=== PATIENT | male | born 1965 | race Hispanic/Latino ===

== ENCOUNTER 2024-07-26 03:52 | Inpatient (IN) | payer OTHER, SELFPAY ==
[2024-07-26 04:43] LABS: Absolute Lymphocytes (CBC) 2.2 K/uL (0.7-4.9); Absolute Monocytes 0.4 K/uL (0.1-1.3); Absolute Neutrophil 5.8 K/uL (1.8-8.0); Basophils % 0.2 % (0-1.3); Eosinophils % 0.5 % (0-4.4); Hematocrit 44.3 % (39.6-49.0); Hemoglobin 15.5 g/dL (13.6-17.9); Lymphocytes % 26.1 % (15.3-44.8); MCH 32.3 pg (27.0-35.0); MCHC 34.9 g/dL (32.0-36.0); MCV 92.5 fL (80-100); MPV 7.4 fL (7.6-11.3); Neutrophils % 68.2 % (41.7-73.7); Nucleated Red Blood Cells % 0.1 % (0-0); Platelets 193 thou/uL (152-406); RBC Red Blood Cell Count 4.79 M/uL (4.33-5.43)
[2024-07-26 04:49] LABS: PT Prothrombin Time 10.7 SECONDS (9.4-12.5); Protime INR 1.02
[2024-07-26 05:02] LABS: ALT/SGPT 31 U/L (16-61); AST/SGOT 20 U/L (15-37); Albumin 3.3 g/dL (3.4-5.0); Albumin/Globulin Ratio 0.9 (1.1-1.8); Alkaline Phosphatase 114 U/L (45-117); Anion Gap 9.7 mEq/L (5.0-15.0); BUN Blood Urea Nitrogen 12 mg/dL (7-18); Bicarbonate 26 mEq/L (21-32); Bilirubin Total 0.4 mg/dL (0.2-1.0); Globulin 3.7 g/dL (2.3-3.5); Glomerular Filtration Rate 85 ml/min (=/>90); Glucose Level 117 mg/dL (74-106); Lipase 24 U/L (13-75); NT PRO-BNP 14 pg/mL (<125); Potassium 3.7 mEq/L (3.5-5.1); Sodium Level 139 mEq/L (136-145); Troponin High Sensitivity 13.3 pg/mL (<58.9)
[2024-07-26 05:17] LABS: Bilirubin Direct < 0.2 mg/dL (0-0.2); Bilirubin Indirect, Calculated 0.2 mg/dL (0.2-0.8)
--- NOTE | 2024-07-26 05:51 | RAD REPORT ---
EXAM: XR Chest, 1 View CLINICAL HISTORY: The patient is 58 years old and is Male; CHEST PAIN TECHNIQUE: Frontal view of the chest. COMPARISON: No relevant prior studies available. FINDINGS: Lungs: Unremarkable. No consolidation. Pleural space: Unremarkable. No pneumothorax. Heart: Unremarkable. Mediastinum: Unremarkable. Normal mediastinal contour. Bones/joints: No acute findings. IMPRESSION: No acute findings in the chest. Electronically signed by: Junito Osorio MD 07/26/2024 05:34 AM [facility] 8 Due to temporary technical issues with the PACS/Nexgence reporting system, reports are being sierra d by the in-house radiologist without review as a courtesy to ensure prompt reporting the interpreting radiologist is fully responsible for the content of the report. Transcribed Date/Time: 07/26/2024 5:51 AM
--- NOTE | 2024-07-26 06:17 | ER ---
Nurse's Notes [facility] Name: Cam Morgan Age: 58 yrs Sex: Male : 1965 Arrival Date: 07/26/2024 Time: 03:52 Bed 6 Private MD: Sonny Redding B Diagnosis: Chest pain, unspecified Presentation: 07/26 04:21 Chief complaint: Patient states: back pain that radiates to chest when I lay down. vc1 Coronavirus screen: Client denies travel out of the [place] in the last 14 days. At this time, the client does not indicate any symptoms associated with coronavirus-19. Ebola Screen: Patient negative for fever greater than or equal to 101.5 degrees Fahrenheit, and additional compatible Ebola Virus Disease symptoms Patient denies exposure to infectious person. Patient denies travel to an Ebola-affected area in the 21 days before illness onset. No symptoms or risks identified at this time. Initial Sepsis Screen: Does the patient meet any 2 criteria? No. Patient's initial sepsis screen is negative. Does the patient have a suspected source of infection? No. Patient's initial sepsis screen is negative. Risk Assessment: Do you want to hurt yourself or someone else? Patient reports no desire to harm self or others. Onset of symptoms was July 25, 2024 at 23:00. 04:21 Method Of Arrival: Ambulatory vc1 04:21 Acuity: MAXIME 3 vc1 Triage Assessment: 04:24 General: Appears in no apparent distress. comfortable, well groomed, well developed, vc1 well nourished, Behavior is calm, cooperative, appropriate for age. Pain: Complains of pain in thoracic area Pain radiates to mid-sternal area Pain currently is 3 out of 10 on a pain scale. at worst was 6 out of 10 on a pain scale. Quality of pain is described as sharp, Pain began 2300. EENT: No deficits noted. No signs and/or symptoms were reported regarding the EENT system. Neuro: Level of Consciousness is awake, alert, obeys commands, Oriented to person, place, time, situation, Appropriate for age. Cardiovascular: Capillary refill < 3 seconds Patient's skin is warm and dry. Respiratory: Airway is patent Respiratory effort is even, unlabored, Respiratory pattern is regular, symmetrical, Breath sounds are clear bilaterally. GI: No deficits noted. No signs and/or symptoms were reported involving the gastrointestinal system. : No deficits noted. No signs and/or symptoms were reported regarding the genitourinary system. Derm: Skin is intact, is healthy with good turgor, Skin is dry, Skin is normal, Skin temperature is warm. Musculoskeletal: Circulation, motion, and sensation intact. Range of motion: intact in all extremities. Historical: - Allergies: 04:23 No Known Allergies; vc1 - Home Meds: 04:23 None [Active]; vc1 - PMHx: 04:23 Myocardial infarction; vc1 - PSHx: 04:23 nasal; vc1 - Immunization history:: Client reports having NOT received the Covid vaccine. Flu vaccine is not up to date. - Infectious Disease History:: Denies. - Family history:: not pertinent. - Social history:: Smoking status: Patient denies any tobacco usage or history of. - Hospitalizations: : No recent hospitalization is reported. Screenin:22 [facility] ED Fall Risk Assessment (Adult) History of falling in the last 3 months, vc1 including since admission No falls in past 3 months (0 pts) Confusion or Disorientation No (0 pts) Intoxicated or Sedated No (0 pts) Impaired Gait No (0 pts) Mobility Assist Device Used No (0 pt) Altered Elimination No (0 pt) Score/Fall Risk Level 0 - 2 = Low Risk Oriented to surroundings, Maintained a safe environment, Educated pt \T\ family on fall prevention, incl call for assistance when getting out of bed. Abuse screen: Denies threats or abuse. Nutritional screening: No deficits noted. Tuberculosis screening: No symptoms or risk factors identified. Never had TB. Assessment: 07:15 Reassessment: Patient appears in no apparent distress at this time. Patient and/or db family updated on plan of care and expected duration. Pain level reassessed. Patient is alert, oriented x 3, equal unlabored respirations, skin warm/dry/pink. General: Appears in no apparent distress. comfortable, Behavior is calm, cooperative. Pain:. Neuro: Level of Consciousness is awake, alert, obeys commands, Oriented to person, place, time, situation. Vital Signs: 04:00 BP 147 / 95; Pulse 62; Resp 18; Pulse Ox 98% ; al5 04:21 BP 126 / 92; Pulse 69; Resp 18; Temp 97.8; Pulse Ox 100% ; Weight 103.42 kg; Height 6 vc1 ft. 1 in. ; Pain 3/10; 04:30 BP 138 / 85; Pulse 61; Resp 17; Pulse Ox 97% on R/A; al5 07:35 BP 129 / 85; Pulse 60; Resp 16; Pulse Ox 96% ; ko1 09:56 BP 127 / 79; Pulse 60; Resp 15; Pulse Ox 99% ; ko1 04:21 Body Mass Index 30.08 (103.42 kg, 185.42 cm) vc1 04:21 Pain Scale: Adult vc1 ED Course: 03:57 Patient arrived in ED. gm2 03:57 David Owusu MD is Attending Physician. rn 03:57 Sonny Redding MD is Private Physician. gm2 04:15 No provider procedures requiring assistance completed. Inserted saline lock: 20 gauge al5 in right antecubital area, using aseptic technique. Blood collected. Flushed with 10 mL NS. 04:22 Triage completed. vc1 04:22 Arm band placed on right wrist. vc1 04:23 Patient has correct armband on for positive identification. Placed in gown. Bed in low vc1 position. environmental monitoring specialist on. Pulse ox on. NIBP on. 04:26 XRAY Chest (1 view) In Process Unspecified. EDMS 04:26 Provided Education on: Call light. vc1 04:35 EKG done, by ED staff, reviewed by David Owusu MD. sa1 04:48 Katherin Porras, SUSANNA is Primary Nurse. al5 05:34 CT Aorta for Dissection In Process Unspecified. EDMS 06:16 Melodie Singletary MD is Hospitalizing Provider. rn 14:19 Patient admitted, IV remains in place. ko1 Administered Medications: 07:01 Drug: Aspirin PO Chewable Tablet 324 mg PO once; 81 mg tablets x 4 Route: PO; al5 07:31 Follow up: Response: No adverse reaction ko1 Medication: 04:23 VIS not applicable for this client. vc1 Outcome: 06:17 Decision to Hospitalize by Provider. rn 14:19 Condition: stable ko1 14:19 Instructed on the need for admit, 14:42 Admitted to Tele accompanied by tech, via wheelchair, room 404, with chart, ko1 14:42 Patient left the ED. ko1 Signatures: Dispatcher [employer] EDMS David Owusu MD MD rn Calcote, Vanessa RN RN vc1 Lily Hammer RN RN ko1 Brenda Ozuna RN RN Nhi Barroso 2 Katherin Porras RN RN al5 Sultan Piedad sa1 Sierra Bray RN RN br2 Corrections: (The following items were deleted from the chart) 04:49 04:31 BP 147 / 95; Pulse 62bpm; Resp 18bpm; Pulse Ox 98%; br2 al5
--- NOTE | 2024-07-26 06:17 | EDPHYS ---
Physician Documentation [facility] Name: Cam Morgan Age: 58 yrs Sex: Male : 1965 Arrival Date: 07/26/2024 Time: 03:52 Bed 6 Private MD: Sonny Redding B ED Physician David Owusu HPI: 07/26 04:18 This 58 yrs old Male presents to ER via Unassigned with complaints of Back rn Pain, Chest Pain. 04:18 The patient presents with pain that is acute. The symptoms are located in the thoracic rn area. 04:18 Onset: The symptoms/episode began/occurred this morning. The pain radiates to the rn chest. Associated signs and symptoms: Pertinent positives: chest pain, Pertinent negatives: abdominal pain, fever, hematuria, incontinence, nausea, numbness, tingling, urinary retention, vomiting, weakness. Modifying factors: The patient symptoms are alleviated by nothing, the patient symptoms are aggravated by any movement. Severity of symptoms: At their worst the symptoms were moderate, in the emergency department the symptoms have improved. The patient has experienced similar episodes in the past. Patient reports was laying down on his side when started to have mid back pain, radiates to chest on right side. Patient is concerned because in the past when he had similar back pain he was diagnosed with heart attack and had a stent placed on the right side of his heart. Patient denies any trauma. No recent illness. No shortness of breath. No diaphoresis or nausea with the pain. Hurts to move and got better when pacing and walking around. Still having back pain but no chest pain.. Historical: - Allergies: 04:23 No Known Allergies; vc1 - Home Meds: 04:23 None [Active]; vc1 - PMHx: 04:23 Myocardial infarction; vc1 - PSHx: 04:23 nasal; vc1 - Immunization history:: Client reports having NOT received the Covid vaccine. Flu vaccine is not up to date. - Infectious Disease History:: Denies. - Family history:: not pertinent. - Social history:: Smoking status: Patient denies any tobacco usage or history of. - Hospitalizations: : No recent hospitalization is reported. ROS: 04:18 Constitutional: Negative for fever, chills, and weight loss, Cardiovascular: Positive rn for chest pain Respiratory: Negative for shortness of breath, cough, wheezing, and pleuritic chest pain, Abdomen/GI: Negative for abdominal pain, nausea, vomiting, diarrhea, and constipation, Back: Positive for back pain MS/Extremity: Negative for injury and deformity, Skin: Negative for injury, rash, and discoloration, Neuro: Negative for headache, weakness, numbness, tingling, and seizure, Exam: 04:18 Constitutional: This is a well developed, well nourished patient who is awake, alert, rn and in no acute distress. Cardiovascular: Regular rate and rhythm. No pulse deficits. Respiratory: Speaking full sentences, unlabored. No increased work of breathing, no retractions or nasal flaring. Abdomen/GI: Soft, nontender, negative Huertas. No peritoneal signs or guarding MS/ Extremity: Pulses equal, no cyanosis. Neurovascular intact. Full, normal range of motion. Equal circumference. Neuro: Awake and alert, GCS 15 04:23 ECG was reviewed by the Attending Physician. rn Vital Signs: 04:00 BP 147 / 95; Pulse 62; Resp 18; Pulse Ox 98% ; al5 04:21 BP 126 / 92; Pulse 69; Resp 18; Temp 97.8; Pulse Ox 100% ; Weight 103.42 kg; Height 6 vc1 ft. 1 in. ; Pain 3/10; 04:30 BP 138 / 85; Pulse 61; Resp 17; Pulse Ox 97% on R/A; al5 07:35 BP 129 / 85; Pulse 60; Resp 16; Pulse Ox 96% ; ko1 09:56 BP 127 / 79; Pulse 60; Resp 15; Pulse Ox 99% ; ko1 04:21 Body Mass Index 30.08 (103.42 kg, 185.42 cm) vc1 04:21 Pain Scale: Adult vc1 MDM: 03:57 Medical Screening Exam initiated rn 06:14 Differential diagnosis: arthritis, Cholelithiasis Osteoarthritis sprain, Myocardial rn infarction, pleurisy, muscle spasm, dissection, aneurysm. Data reviewed: vital signs, nurses notes, lab test result(s), EKG, radiologic studies, CT scan, plain films, and as a result, I will admit patient. Consideration of Admission/Observation Patient was admitted/placed on observation. Escalation of care including admission/observation considered. Counseling: I had a detailed discussion with the patient and/or guardian regarding the historical points, exam findings, and any diagnostic results supporting the discharge/admit diagnosis, lab results, radiology results, the need for further work-up and treatment in the hospital. Response to treatment: the patient's symptoms have resolved after treatment, the patient's condition has returned to base line, the patient is now symptom free. ED course: Chest pain resolved. Given inferior lead T wave inversions as well as story that is similar to last time needed a stent, decision jointly made to admit to hospitalist service for cardiology consultation.. 07/26 03:58 Order name: Basic Metabolic Panel; Complete Time: 05:18 07/26 03:58 Order name: CBC with Diff; Complete Time: 04:53 07/26 03:58 Order name: LFT's; Complete Time: 05:18 07/26 03:58 Order name: NT PRO-BNP; Complete Time: 05:18 07/26 03:58 Order name: PT-INR; Complete Time: 04:53 07/26 03:58 Order name: Troponin HS; Complete Time: 05:18 07/26 04:42 Order name: Lipase; Complete Time: 05:18 [facility] 07/26 09:52 Order name: Troponin High Sensitivity [facility] 07/26 03:58 Order name: XRAY Chest (1 view); Complete Time: 07:06 07/26 04:22 Order name: CT Aorta for Dissection 07/26 09:52 Order name: Echo with Doppler [facility] 07/26 09:51 Order name: CONS Physician Consult [facility] 07/26 03:58 Order name: Cardiac monitoring; Complete Time: 04:20 07/26 03:58 Order name: EKG - Nurse/Tech; Complete Time: 04:20 07/26 03:58 Order name: IV Saline Lock; Complete Time: 04:20 07/26 03:58 Order name: Labs collected and sent; Complete Time: 04:20 07/26 03:58 Order name: O2 Per Protocol; Complete Time: 04:20 07/26 03:58 Order name: O2 Sat Monitoring; Complete Time: 04: 07/26 10:55 Order name: Labs - recollect needed: recollect green top/ hemolyzed per lab; Complete eb Time: 11:22 EC:23 Rate is 68 beats/min. Rhythm is regular. QRS [place] is Normal. CO interval is normal. QRS rn interval is normal. QT interval is normal. No Q waves. T waves are Inverted in leads III, aVF. No ST changes noted. Clinical impression: NSR w/ Non-specific ST/T Changes. Interpreted by me. Reviewed by me. Administered Medications: 07:01 Drug: Aspirin PO Chewable Tablet 324 mg PO once; 81 mg tablets x 4 Route: PO; al5 07:31 Follow up: Response: No adverse reaction ko1 Disposition Summary: 07/26/24 06:17 Hospitalization Ordered Notes: Hospitalization Status: Observation rn Provider: Melodie Singletary rn Location: Telemetry/MedSurg (observation) rn Condition: Stable rn Problem: new rn Symptoms: have improved rn Bed/Room Type: Standard rn Room Assignment: 404(07/26/24 13:50) eb Diagnosis - Chest pain, unspecified rn Forms: - Medication Reconciliation Form rn - SBAR form rn - Leadership Thank You Letter rn Signatures: Dispatcher [employer] EDUT David Owusu MD MD rn Botello, Elizabeth eb Calcote, Vanessa RN RN vc1 Katherin Porras RN RN al5 Lily Hammer RN ko1 Corrections: (The following items were deleted from the chart) 03:58 03:58 BASIC METABOLIC PANEL+C.LAB.BRZ ordered. EDMS EDMS 03:58 03:58 CBC+H.LAB.BRZ ordered. EDMS EDMS 03:58 03:58 HEPATIC FUNCTION+C.LAB.BRZ ordered. EDMS EDMS 03:58 03:58 PROBNP+C.LAB.BRZ ordered. EDMS EDMS 03:58 03:58 PROTIME (+INR)+COAG.LAB.BRZ ordered. EDMS EDMS 03:58 03:58 Troponin High Sensitivity+C.LAB.BRZ ordered. EDMS EDMS 03:58 03:58 Chest Single View+RAD.RAD.BRZ ordered. EDMS EDMS 04:42 04:27 LIPASE+C.LAB.BRZ ordered. EDMS EDMS 13:50 06:17 rn eb
[2024-07-26] MEDS ORDERED: ASPIRIN 81 MG CHEWABLE TABLET ONE (06:58)
--- NOTE | 2024-07-26 07:03 | RAD REPORT ---
CT chest, CT abdomen and pelvis angiography with contrast TECHNIQUE: Axial images were taken through the chest with sagittal and coronal reconstructions. Addit ional axial images were taken through the abdomen and pelvis with sagittal and coronal reconstructions. MIP reconstructions were preformed. All CT scans at this facility use dose modulatio n, iterative reconstruction, and/or weight based dosing when appropriate to reduce radiation dose to as low as reasonably achievable HISTORY: chest pain, back pain COMPARISON: one FINDINGS: Aorta: The aorta is of normal caliber without evidence of dissection or other acute aortic syndrome. The contour of the aorta is normal. The branches of the aorta including the common carotid, left subclavian, brachiocephalic, celiac, SMA, renal arteries, and RAFA are patent. Mild atherosclerotic pl aque is seen in the aortic arch and in the iliacs. Scant plaque seen at the origin of the celiac axis. Chest: Mediastinum: The heart is normal in size. There is moderate coronary artery sclerosis. There is no pe ricardial effusion. There is no pathologically enlarged adenopathy. There is no evidence for pulmonary emboli. LUNGS: he lungs are clear there is no alveolar consolidation effusion or pneumothorax. Bones: There are mild degenerative changes. No acute osseous abnormality. ABDOMEN: There is possible diffuse fatty infiltration of the liver. There is no evidence for mass or intrahepa tic biliary ductal dilatation. The gallbladder appears unremarkable. There is no evidence for gallbladder wall thickening or pericholecystic fluid. The adrenal glands, pancreas and spleen are nor mal. The kidneys appear unremarkable. There is no evidence for hydronephrosis or stone. The large and small bowel of the abdomen and pelvis appears unremarkable. There is no evidence for ac [place] appendicitis. Pelvis: There is no evidence for pathologically enlarged adenopathy. The bladder appears unremarkable. There is no free air or free fluid. The prostate is not enlarged. Scattered plaque at the origin of the celiac axis. Mild degenerative changes. No acute osseous abnorm ality. Impression: 1. No evidence of aortic dissection or other acute aortic syndrome. 2. No acute cardiopulmonary process. 3. No acute intra-abdominal or pelvic process. 4. Possible hepatic steatosis. Electronically signed by: Ga Braden MD 07/26/2024 06:56 AM [facility] Due to temporary technical issues with the PACS/Stuk[employer] reporting system, reports are being sierra d by the in-house radiologist without review as a courtesy to ensure prompt reporting the interpreting radiologist is fully responsible for the content of the report. Transcribed Date/Time: 07/26/2024 7:03 AM
--- NOTE | 2024-07-26 09:51 | P.HP ---
Certification for Inpatient Patient admitted to: Observation With expected LOS: <2 Midnights Patient will require the following post-hospital care: None Practitioner: I am a practitioner with admitting privileges, knowledge of patient current condition, hospital course, and medical plan of care. Services: Services provided to patient in accordance with Admission requirements found in Title 42 Section 412.3 of the Code of Federal Regulations Patient History Date of Service: 07/26/24 Reason for admission: CP r/o ACS Physical Examination - Studies Laboratory Data (last 24 hrs) 07/26/24 07/26/24 07/26/24 04:27 04:27 04:27 WBC 8.40 Hgb 15.5 Hct 44.3 Plt Count 193 PT 10.7 INR 1.02 Sodium Potassium BUN Creatinine Glucose Total Bilirubin AST ALT Alkaline Phosphatase Lipase Cancelled 07/26/24 04:27 WBC Hgb Hct Plt Count PT INR Sodium 139 Potassium 3.7 BUN 12 Creatinine 1.03 Glucose 117 H Total Bilirubin 0.4 AST 20 ALT 31 Alkaline Phosphatase 114 Lipase 24 Assessment & Plan - Advance Directives Does patient have a Living Will: No Does patient have a Durable POA for Healthcare: No
--- OUTSIDE RECORDS SUMMARY | 2024-07-26 10:16 | XMS REPORT | Continuity of Care Document ---
Author Name Unknown Address [address] [facility] [address] [place] [address] [facility] thconnect Address [address] [facility]. [address] [place] [address] Care Team Providers Care Transmission Inspector Name Role Phone SONNY TYSON Primary Care Physician UnavailBEVERLY Galdamez Attending Clinician Unavailable Beverly Fang MD Attending Clinician [phone] Doctor Unassigned, [place] Attending Clinician U navailable Therapy, [facility] Attending Clinician Unavailable Marvin Campbell MD Attending Clinician [phone] WILMAN KING Attending Clinician Unavailable Filipe Foley Attending Clinician UnavailSonny Mario Admitting Clinician Unavailable Payers Payer Name Policy Type Policy Number Effective Date Expirati on Date Source [facility] [id number] 2020 00:00:00 Problems Condition Name Condition Details Condition Category Status Onset Date Resolution Date Last Treatment Date Treating Clinician Comments Source Coronary artery disease involving [place] coronary artery of [place] heart without angina pectoris Coronary artery disease involving [place] coronary artery of [place] heart without angina pectoris Disease Active 08-03 00:00: 00 [facility] Hyperlipid emia, unspecifie d hyperlipid emia type Hyperlipid emia, unspecifie d hyperlipid emia type Disease Active 08-03 00:00: 00 [facility] Obesity (BMI 30-39.9) Obesity (BMI 30-39.9) Disease Active 08-03 00:00: 00 [facility] Allergies, Adverse Reactions, Alerts Allergy Name Allergy Type Status Severity Reaction(s) Onset Date Inactive Date Treating Clinician Comments Source No Known Allergie s DA Active U 01-30 00:00: 00 [facility] No Known Allergie s DA Active U 01-30 00:00: 00 [facility] NO KNOWN ALLERGIE S Drug Class Active [facility] Social History Social Habit Start Date Stop Date Quantity Comments Source [facility] Tobacco use and exposure 2023-08-03 00:00:00 2023-08-03 00:00:00 Smokeless tobacco non-user [facility] History of Social function 2023-08-03 00:00:00 2023-08-03 00:00:00 [facility] Sex Assigned At 1965 00:00:00 1965 00:00:00 [facility] Smoking Status Start Date Stop Date Source Tobacco smoking consumption unknown [facility] Never smoked tobacco [facility] Medications Ordered Medication Name Filled Medication Name Start Date Stop Date Current Medication? Ordering Clinician Indication Dosage Frequency Signature (SIG) Comments Components Source aspirin (ASPIR-81 ORAL) 08-03 09:20: 02 Yes Take by mouth. [facility] BRILINTA 90 mg tablet 2022-07 00:00: 00 Yes 90mg Take 1 tablet by mouth in the morning and 1 tablet in the evening. [facility] ezetimibe 10 mg tablet 2022-07 00:00: 00 Yes 10mg Take 1 tablet by mouth 2 (two) times per week. [facility] bamlanivima b (EUA) 700 mg in NaCl 0.9% (NS) 270 mL infusion 08-15 15:15: 00 08-15 16:25 :00 No 700mg [facility] bamlanivima b (EUA) 700 mg in NaCl 0.9% (NS) 270 mL infusion 08-15 15:15: 00 08-15 16:25 :00 No 700mg 700 mg, IV Infusion, ONCE, 08/15/20 at 0915, For 1 dose
Ad procurement professional as an IV infusion over 60 minutes through a PVC infusion set containing a 0.2 or 0.22 micron in-line polyethers ulfone filter.&nb sp; S low or stop infusion and treat as appropriat e if an infusion-r elated reaction occurs. Dilu florencia infusion solution should be administer ed immediatel y. If immediate administra tion is not possible, store diluted bamlanivim ab infusion solution for up to 24 hours refrigerat ed at 2?C to 8?C (36?F to 46?F) or up to 7 hours at 20?C to 25?C (68?F to 77?F) including infusion time.
[facility] Vital Signs Vital Name Observation Time Observation Value Comments S ource Systolic blood pressure 2023-08-03 15:29:00 125 mm[Hg] [facility] Diastolic blood pressure 2023-08-03 15:29:00 80 mm[Hg] [facility] Heart rate 2023-08-03 15:29:00 62 /min [facility] Body height 2023-08-03 15:29:00 185.4 cm [facility] Body weight 2023-08-03 15:29:00 106.958 kg [facility] BMI 2023-08-03 15:29:00 31.11 kg/m2 [facility] Oxygen saturation in Arterial blood by Pulse oximetry 2023-08-03 15:29:00 98 /min [facility] Systolic blood pressure 2020-08-15 17:24:00 124 mm[Hg] [facility] Diastolic blood pressure 2020-08-15 17:24:00 71 mm[Hg] [facility] Heart rate 2020-08-15 17:24:00 76 /min [facility] Oxygen saturation in Arterial blood by Pulse oximetry 2020-08-15 17:24:00 99 /min [place] [facility] Body temperature 2020-08-15 17:01:[address] [facility] Respiratory rate 2020-08-15 16:25:00 20 /min [facility] Body height 2020-08-15 14:01:00 182.9 cm [facility] Body weight 2020-08-15 14:01:00 122.471 kg [facility] BMI 2020-08-15 14:01:00 36.62 kg/m2 [facility] Procedures Procedure Date / Time Performed Performing Clinicia n Source CONSENT/REFUSAL FOR DIAGNOSIS AND TREATMENT 2023-08-03 14:48:35 Doctor Unassigned, [place] [facility] EXTERNAL PROVIDER RECORDS 2020-08-27 06:01:00 Doctor Unassigned, [place] [facility] REFERRAL- REQUEST/RESPONSE 2020-08-13 06:01:00 Doctor Unassigned, [place] [facility] Encounters Start Date/Time End Date/Time Encounter Type Admission Type Attending Clinicians Care Facility Care Department Encounter ID Source 2023-08-03 09:00:00 2023-08-03 09:49:13 [id number] 2023-08-03 09:00:00 2023-08-03 09:49:13 [facility] [id number] [id number] [facility] 2023-08-03 00:00:00 2023-08-03 00:00:00 Orders Only Doctor Unassigned, [place] [facility] 1..840.114 350.1.13.10 4.2.7.2.686 [id number] [facility] 2023-08-03 00:00:00 2023-08-03 00:00:00 [facility] [id number] [id number] 4.2.7.2.686 [id number] [facility] 2020-08-27 00:00:00 2020-08-27 00:00:00 Orders Only Doctor Unassigned, [place] [facility] [id number] 350.1.13.10 4.2.7.2.686 [id number] [facility] 2020-08-15 07:55:33 2020-08-15 08:25:33 Nurse Visit Therapy, [facility] Marvin Reaves [facility] 1..840.114 350.1.13.10 4.2.7.2.686 [id number] [facility] 2020-08-15 08:00:00 2020-08-15 08:00:00 Outpatient R [facility] [id number] [facility] 2020-08-13 00:00:00 2020-08-13 00:00:00 Orders Only Doctor Unassigned, [place] [facility] [id number] 350.1.13.10 4.2.7.2.686 [id number] [facility] 2020-08-11 17:20:00 2020-08-11 17:20:00 Outpatient WILMAN FRIAS [facility] [id number] [facility] 2020-01-31 15:00:00 2020-02-08 22:19:44 Inpatient TYSON Francisnicanor Filipe [facility] YUMI [id number] [facility] Results Test Description Test Time Test Comments Results Result Co mments Source SURG 2020-02-05 15:29:00 --------RUN DATE: 02/05/20 [facility] PAGE 1 RUN TIME: 1530 Specimen Inquiry RUN USER: INTERFACE --------PATIENT: EMILY LUX LOC: SASHA U #: [id number] AGE/SX: 54/M ROOM: RE02/04/20REG DR: Filipe Foley III : 67 BED: DIS: STATUS: DEP SDC TLOC: -------- SPEC #: [id number] RECD: 02/04/20 STATUS: BRADLEY ZAMORA #: [id number] PENELOPE: 02/04/[address] [facility] DR: Filipe Foley III, MD ENTERED: 02/04/208 SP TYPE: SURG OTHR DR: Sonny Tyson MD ORDERED: SURG PATH LVL 1, SURG PATH LVL 3 COPIES TO: [place] [address] [facility] [address] [place] [address] [email or web address]. Sonny Collazo MD [address] [place] [address] [address] [place] [address] HISTOLOGY: TISSUE ID BLK PCS PREM LEV PROCEDURE DISPOSITION ____ ___ ___ ___ NASAL SEPTUM, N A 1 1 NASAL TURBINATE B 1 1 PROCEDURES: SURG PATH LVL 1 (02/04/20-1007) SURG PATH LVL 3 (02/04/20-1007) TISSUES: A. NASAL SEPTUM, NOS - SEPTUM CONTENTS B. NASAL TURBINATE, NOS - TURBINATE CONTENTS CLINICAL HISTORY LOLITA BULLOSA - J34.89; NASAL SEPTAL DEVIATION - J34.2; TURBINATE - J34.3 CPT CODES CPT CODE(S): 93598 , 59986 , , , , , FINAL DIAGNOSIS A. Nasal septum, septoplasty: FRAGMENTS OF BONE AND CARTILAGE (GROSS DIAGNOSIS ONLY) B. Nasal cavity, turbinates, turbinectomy: MILD CHRONIC INFLAMMATION CONTINUED ON NEXT PAGE --------RUN DATE: 02/05/20 [facility] PAGE 2 RUN TIME: 1530 Specimen Inquiry RUN USER: INTERFACE --------SPEC #: [id number] PATIENT: EMILY LUX #[id number] (Continued) GROSS DESCRIPTION A. Septum. Received in formalin are multiple irregular fragments of bones, 4.5 x 3.5 x 0.5 cm in aggregate. The specimen is for gross identification only and is photographed. B. Turbinate contents. Received in formalin are multiple irregular fragments of chandler-brown soft tissue admixed with dark red-brown blood clots, 3.5 x 1.5 x 0.5 cm in aggregate. Ground Products Director sections submitted as B. ba/nr Grossing performed at [facility] Pathology, [address] [place] [address], [address], [place] [address]. Wildlife Ecology Professor: Michael Hargrove M.D. MICROSCOPIC DESCRIPTION A. Septum. No sections submitted. Gross diagnosis only. B. Turbinate contents. Sections demonstrate respiratory mucosa with underlying glands and mild chronic inflammation. Occasional fragments of calcified bone are seen. No malignancy is identified. Signed SIGNATURE ON FILE Aden White 02/05/20 1529 -------- END OF REPORT Emergent procedure? YESComment: SCHEDULED PROCEDUREPROTHROMBIN [id number] 16:23:00* Test Item Value Reference Range Interpretation Comme nts PT PATIENT (test code = PTP) 11.3 SECONDS 9.3-12.9 N INTERNATIONAL NORMAL RATIO (test code = INR) 1.00 INR Unit 0.8-1.2 N THROMBOPLASTIN TIME [id number] 16:23:00* Test Item Value Reference Range Interpretation Comme nts THROMBOPLASTIN TIME PARTIAL (test code = PTT) 35.6 SECONDS 26-35 H CBC W/AUTO [id number] 16:15:00* Test Item Value Reference Range Interpretation Comme nts WHITE BLOOD CELL (test code = WBC) 5.9 K/mm3 3.5-11.0 N RED BLOOD CELL (test code = RBC) 4.82 M/mm3 4.70-6.10 N HEMOGLOBIN (test code = HGB) 15.5 G/DL 12.3-15.9 N HEMATOCRIT (test code = HCT) 44.1 % 35.8-46.7 N MEAN CELL VOLUME (test code = MCV) 91.5 Fl 86.3-98.9 N MEAN CELL HGB (test code = MCH) 32.2 pg 28.9-34.4 N MEAN CELL HGB CONCETRATION (test code = MCHC) 35.1 G/DL 32.1-34.5 H RED CELL DISTRIBUTION WIDTH (test code = RDW) 12.2 SD 11.5-14.5 N PLATELET COUNT (test code = PLT) 181 K/mm3 150-450 N MEAN PLATELET VOLUME (test c ode = MPV) 9.50 fL 7.0-9.6 N NEUTROPHIL % (test code = NT%) 50.8 % 40-76 N IMMATURE GRANULOCYTE % (test code = IG%) 0.3 % 0.0-5.0 N LYMPHOCYTE % (test code = LY%) 38.7 % 20.5-51.1 N MONOCYTE % (test code = MO%) 8.4 % 1.7-9.3 N EOSINOPHIL % (test code = EO%) 1.5 % 0.0-6.0 N BASOPHIL % (test code = BA%) 0.3 % 0.0-2.0 N NUCLEATED RBC % (test code = NRBC%) 0.0 /100WBC% 0.0-1.0 N NEUTROPHIL # (test code = NT#) 3.0 K/mm3 1.8-7.6 N IMMATURE GRANULOCYTE # (test code = IG#) 0.02 x10 3/uL 0.00-0.03 N LYMPHOCYTE # (test code = LY#) 2.3 K/mm3 0.6-3.0 N MONOCYTE # (test code = MO#) 0.5 K/mm3 0.2-1.5 N EOSINOPHIL # (test code = EO#) 0.1 K/mm3 0.0-0.4 N BASOPHIL # (test code = BA#) 0.0 K/mm3 0.0-0.2 N NUCLEATED RBC # (test code = NRBC#) 0.0 K/mm3 0.00-0.01 N MANUAL DIFF REQUIRED (test c ode = MDIFF) NO DIFF/SCN CRITERIA
[2024-07-26 10:33] VITALS: BMI 29.9
[2024-07-26 11:23] VITALS: O2SAT 96
[2024-07-26] MEDS: FLU (Fluarix Triv) TS24-25(6MOS UP)/PF 45 MCG/0.5 ML Syringe IM ONE (11:45)
--- NOTE | 2024-07-26 15:57 | ECHO ---
HEIGHT: 6 ft 1 in WEIGHT: 227 lb 0 oz DATE OF STUDY: 07/26/[address]: Melodie Singletary MD 2-DIMENSIONAL: YES M.MODE: YES DOPPLER: YES COLOR FLOW: YES TDS: NO PORTABLE: YES DEFINITY: NO BUBBLE STUDY: NO DIAGNOSIS: CHEST PAIN RULE OUT ACS CARDIAC HISTORY: CATHERIZATION:YES SURGERY: NO PROSTHETIC VALVE: NO PACEMAKER: NO MEASUREMENTS (cm) DIASTOLIC (NORMALS) SYSTOLIC (NORMALS) IVSd 1.2 (0.6-1.2) LA Diam 3.3 (1.9-4.0) LVEF 60-65% LVIDd 4.3 (3.5-5.7) LVIDs 2.7 (2.0-3.5) %FS 37% LVPWd 1.2 (0.6-1.2) Ao Diam 3.0 (2.0-3.7) 2 DIMENSIONAL ASSESSMENT: RIGHT ATRIUM: NORMAL LEFT ATRIUM: NORMAL RIGHT VENTRICLE: NORMAL LEFT VENTRICLE: NORMAL TRICUSPID VALVE: MILD TRICUSPID REGURGITATION MITRAL VALVE: TRACE MITRAL REGURGITATION PULMONIC VALVE: NORMAL AORTIC VALVE: NORMAL PERICARDIAL EFFUSION: NONE AORTIC ROOT: NORMAL LEFT VENTRICULAR WALL MOTION: NORMAL. DOPPLER/COLOR FLOW: SEE BELOW. COMMENTS: 1. NORMAL LEFT VENTRICULAR EJECTION FRACTION 60-65%. 2. NORMAL WALL MOTION. 3. GRADE I DIASTOLIC DYSFUNCTION. 4. MILD TRICUSPID REGURGITATION. 5. NORMAL RIGHT VENTRICULAR SYSTOLIC PRESSURE. TECHNOLOGIST: VÍCTOR GARCIA
--- NOTE | 2024-07-26 18:38 | CON ---
Date of Consultation: 07/26/2024 Reason For Consultation: Chest pain. History Of Present Illness: This is a 58-year-old male with past medical history of coronary artery disease, status post PCI which appears to be left circumflex about a year and half ago. He does not follow up with a center medical specialist, comes in because he started having back pain and moved slightly to the chest in the past when he had his heart attack. It started with back pain that went to his chest, r adiated to his neck and shoulders. He does not have all that to this time and just a very mild disco mfort in the front part of his torso, but mainly the pain is in his back and it is resolved by now. Past Medical History: Coronary artery disease and dyslipidemia. Medications: Refer reconciliation sheet for detailed list. Allergies: NO KNOWN DRUG ALLERGIES. Family History: No premature coronary artery disease or cancer. Social History: Does not smoke or drink. Does not use any drugs. Review of Systems: All systems reviewed, they were negative except as mentioned in HPI. Physical Examination: Vital Signs: Reviewed. Head and Neck: Pupils are equal, reactive to light. Intact eye movements. No JVD. No cervical lym phadenopathy. Neck is supple. Thyroid is not enlarged. Lungs: Clear to auscultation bilaterally. No rhonchi, wheezing, or crackles. No accessory muscle u se. Heart: Regular rate and rhythm. No extra sounds. Abdomen: Soft, nontender. Bowel sounds positive. No organomegaly. No masses or hernia. No rigidi ty or rebound. Extremities: No edema, clubbing, cyanosis. Intact pulses. Skin: No rash. No nodule. Neurologic: Alert, awake, oriented x3. No acute focal deficits appreciated. Investigations: BUN 12, creatinine 1.03. Troponin x2 are negative and hemoglobin is 15.5. Assessment/recommendation: Chest pain, it is atypical. The pain is actually in his back, but is kno wn to have coronary artery disease. He had minimal chest discomfort. Two cardiac enzymes are negati ve. Get 1 more if it is negative since he is pain-free right now. He can be released. Follow up at the office early next week to obtain stress test unless his troponin becomes abnormal later, then a coronary angiogram will be recommended. Recommend to put him on high-dose statin 40 mg q.h.s. and ba by aspirin and resume home medications. Thank you for the consult. OSIRIS Voice ID: [id number] Report ID: [id number]
[2024-07-26 19:11] VITALS: BP 133/78; TEMP 97.8
--- NOTE | 2024-07-31 12:49 | EKG ---
Test Date: 2024-07-26 Test Time: 04:07:04 Tea Bag Packer: MEASUREMENT RESULTS: Intervals: Rate: 68 DE: 180 QRSD: 88 QT: 390 QTc: 414 [place]: P: 31 DE: 180 QRS: 20 T: -18 INTERPRETIVE STATEMENTS: Normal sinus rhythm Nonspecific T wave abnormality Abnormal ECG No previous ECG available for comparison Electronically Signed On 07-31-24 12:37:56 FACTORY CLERK by Kevin Kapadia
== END 2024-07-26 20:16 | disposition home or self-care (01) | DRG 313 ==
LOC: ER 03:52 → ERHOLD 09:46 → 4TH 14:05
PROVIDERS: ADMIT Hospitalist; ATTEND Hospitalist
DX: R07.89 Other chest pain (principal); E78.5 Hyperlipidemia, unspecified; I25.10 Atherosclerotic heart disease of native coronary artery without angina pectoris; I25.2 Old myocardial infarction; Z28.310 Unvaccinated for COVID-19
CPT/HCPCS: 36415; 71045; 71275; 74175; 80048; 80076; 83690; 83880; 84484; 85025; 85610; 93005; 93306; 99285; Q9967

== ENCOUNTER 2024-07-29 02:04 | Observation (INO) | payer SELFPAY ==
--- OUTSIDE RECORDS SUMMARY | 2024-07-29 02:07 | XMS REPORT | Continuity of Care Document ---
Author Name Unknown Address [address] [facility] [address] [place] [address] [facility] thconnect Address [address] [facility] [address] [place] [address] Care Team Providers Care Forensic Analyst Name Role Phone SONNY TYSON Primary Care Physician UnavailBEVERLY Galdamez Attending Clinician Unavailable Marquez SARMIENTO, Beverly Attending Clinician [phone] Doctor Unassigned, [place] Attending Clinician U navailable Therapy, [facility] Attending Clinician Unavailable Marvin Campbell MD Attending Clinician WILMAN KING Attending Clinician Unavailable Filipe Foley Attending Clinician UnavailSonny Mario Admitting Clinician Unavailable Payers Payer Name Policy Type Policy Number Effective Date Expirati on Date Source [facility] [facility] [id number] 2020 00:00:00 Problems Condition Name Condition Details Condition Category Status Onset Date Resolution Date Last Treatment Date Treating Clinician Comments Source Coronary artery disease involving kiana coronary artery of kiana heart without angina pectoris Coronary artery disease involving kiana coronary artery of kiana heart without angina pectoris Disease Active 08-03 00:00: 00 [facility] Hyperlipid emia, unspecifie d hyperlipid emia type Hyperlipid emia, unspecifie d hyperlipid emia type Disease Active 08-03 00:00: 00 [facility] Obesity (BMI 30-39.9) Obesity (BMI 30-39.9) Disease Active 08-03 00:00: 00 [facility] Allergies, Adverse Reactions, Alerts Allergy Name Allergy Type Status Severity Reaction(s) Onset Date Inactive Date Treating Clinician Comments Source No Known Allergie s DA Active U 01-30 00:00: 00 [facility] No Known Allergie s DA Active U 01-30 00:00: 00 [facility] NO KNOWN ALLERGIE S Drug Class Active [facility] Social History Social Habit Start Date Stop Date Quantity Comments Source [facility] Tobacco use and exposure 2023-08-03 00:00:00 2023-08-03 00:00:00 Smokeless tobacco non-user [facility] History of Social function 2023-08-03 00:00:00 2023-08-03 00:00:00 [facility] Sex Ass[birth year] At 1965 00:00:00 1965 00:00:00 [facility] Smoking Status Start Date Stop Date Source Tobacco smoking consumption unknown [facility] Never smoked tobacco [facility] Medications Ordered Medication Name Filled Medication Name Start Date Stop Date Current Medication? Ordering Clinician Indication Dosage Frequency Signature (SIG) Comments Components Source aspirin (ASPIR-81 ORAL) 08-03 09:20: 02 Yes Take by mouth. [facility] BRILINTA 90 mg tablet 2022-07 00:00: 00 Yes 90mg Take 1 tablet by mouth in the morning and 1 tablet in the evening. [facility] ezetimibe 10 mg tablet 2022-07 00:00: 00 Yes 10mg Take 1 tablet by mouth 2 (two) times per week. [facility] bamlanivima b (EUA) 700 mg in NaCl 0.9% (NS) 270 mL infusion 08-15 15:15: 00 08-15 16:25 :00 No 700mg [facility] bamlanivima b (EUA) 700 mg in NaCl 0.9% (NS) 270 mL infusion 08-15 15:15: 00 08-15 16:25 :00 No 700mg 700 mg, IV Infusion, ONCE, 08/15/20 at 0915, For 1 dose
Ad horticultural farm manager as an IV infusion over 60 minutes [...] 25?C (68?F to 77?F) including infusion time.
[facility] Vital Signs Vital Name Observation Time Observation Value Comments S ource Systolic blood pressure 2023-08-03 15:29:00 125 mm[Hg] [facility] Diastolic blood pressure 2023-08-03 15:29:00 80 mm[Hg] [facility] Heart rate 2023-08-03 15:29:00 62 /min [facility] Body height 2023-08-03 15:29:00 185.4 cm [facility] Body weight 2023-08-03 15:29:00 106.958 kg [facility] BMI 2023-08-03 15:29:00 31.11 kg/m2 [facility] Oxygen saturation in Arterial blood by Pulse oximetry 2023-08-03 15:29:00 98 /min [facility] Systolic blood pressure 2020-08-15 17:24:00 124 mm[Hg] [facility] Diastolic blood pressure 2020-08-15 17:24:00 71 mm[Hg] [facility] Heart rate 2020-08-15 17:24:00 76 /min [facility] Oxygen saturation in Arterial blood by Pulse oximetry 2020-08-15 17:24:00 99 /min [place] [facility] Body temperature 2020-08-15 17:01:00 36.78 Becky [facility] Respiratory rate 2020-08-15 16:25:00 20 /min [facility] Body height 2020-08-15 14:01:00 182.9 cm [facility] Body weight 2020-08-15 14:01:00 122.471 kg [facility] BMI 2020-08-15 14:01:00 36.62 kg/m2 [facility] Procedures Procedure Date / Time Performed Performing Clinicia n Source CONSENT/REFUSAL FOR DIAGNOSIS AND TREATMENT 2023-08-03 14:48:35 Doctor Unassigned, [place] [facility] EXTERNAL PROVIDER RECORDS 2020-08-27 06:01:00 Doctor Unassigned, [place] [facility] REFERRAL- REQUEST/RESPONSE 2020-08-13 06:01:00 Doctor Unassigned, [place] [facility] Encounters Start Date/Time End Date/Time Encounter Type Admission Type Attending Clinicians Care Facility Care Department Encounter ID Source 2023-08-03 09:00:00 2023-08-03 09:49:13 Outpatient R BEVERLY FANG [facility] [id number] [facility] 2023-08-03 09:00:00 2023-08-03 09:49:13 [facility] [id number] [id number] [facility] 2023-08-03 00:00:00 2023-08-03 00:00:00 Orders Only Doctor Unassigned, [place] [facility] [id number] [id number] [facility] 2023-08-03 00:00:00 2023-08-03 00:00:00 Telephone Beverly Fang [facility] [id number] [id number] [id number] [id number] [facility] 2020-08-27 00:00:00 2020-08-27 00:00:00 Orders Only Doctor Unassigned, [place] [facility] [id number] [id number] [id number] [facility] 2020-08-15 07:55:33 2020-08-15 08:25:33 Nurse Visit Therapy, Marvin Brink [facility] [address] [id number] [id number] [id number] [id number] [facility] 2020-08-15 08:00:00 2020-08-15 08:00:00 Outpatient R [facility] [id number] [facility] 2020-08-13 00:00:00 2020-08-13 00:00:00 Orders Only Doctor Unassigned, [place] [facility] [id number] [id number] [id number] [facility] 2020-08-11 17:20:00 2020-08-11 17:20:00 Outpatient WILMAN FRIAS [facility] [id number] [facility] 2020-01-31 15:00:00 2020-02-08 22:19:44 Inpatient Filipe Zelaya [facility] [id number] [facility] Results Test Description Test Time Test Comments Results Result Co mments Source SURG 2020-02-05 15:29:00 --------RUN DATE: 02/05/20 [facility] PAGE 1 RUN TIME: 1530 Specimen Inquiry RUN USER: INTERFACE --------PATIENT: EMILY LUX LOC: SASHA U #: [id number] AGE/SX: 54/M ROOM: RE02/04/20[facility] DR: Filipe Foley III : 67 BED: DIS: STATUS: [facility] TLOC: -------- SPEC #: [id number] RECD: 02/04/20 STATUS: BRADLEY REMeir #: [id number] PENELOPE: 02/04/20 [facility] DR: Filipe Foley III, MD ENTERED: 02/04/20-1008 SP TYPE: SURG OTHR DR: Sonny Tyson MD ORDERED: SURG PATH LVL 1, SURG PATH LVL 3 COPIES TO: [place] [id number] [facility] [address] [place] [address] [email or web address] Sonny Collazo MD [address] [place] [address] [address] [place] [address] HISTOLOGY: TISSUE ID BLK PCS PREM LEV PROCEDURE DISPOSITION ____ ___ ___ ___ NASAL SEPTUM, N A 1 1 NASAL TURBINATE B 1 1 PROCEDURES: SURG PATH LVL 1 (02/04/20-1007) SURG PATH LVL 3 (02/04/20) TISSUES: A. NASAL SEPTUM, NOS - SEPTUM CONTENTS B. NASAL TURBINATE, NOS - TURBINATE CONTENTS CLINICAL HISTORY LOLITA BULLOSA - J34.89; NASAL SEPTAL DEVIATION - J34.2; TURBINATE - J34.3 CPT CODES CPT CODE(S): 44733 , 06709 , , , , , FINAL DIAGNOSIS A. Nasal septum, septoplasty: FRAGMENTS OF BONE AND CARTILAGE (GROSS DIAGNOSIS ONLY) B. Nasal cavity, turbinates, turbinectomy: MILD CHRONIC INFLAMMATION CONTINUED ON NEXT PAGE --------RUN DATE: 02/05/20 [facility] PAGE 2 RUN TIME: 1530 Specimen Inquiry RUN USER: INTERFACE --------SPEC #: [id number] PATIENT: EMILY LUX #[id number] (Continued) GROSS DESCRIPTION A. Septum. Received in formalin are multiple irregular fragments of bones, 4.5 x 3.5 x 0.5 cm in aggregate. The specimen is for gross identification only and is photographed. B. Turbinate contents. Received in formalin are multiple irregular fragments of chandler-brown soft tissue admixed with dark red-brown blood clots, 3.5 x 1.5 x 0.5 cm in aggregate. Cable Armorer sections submitted as B. ba/nr Grossing performed at [facility] Pathology, [facility], [address], [place] [address]. Crystal Machining Coordinator: Michael Hargrove M.D. MICROSCOPIC DESCRIPTION A. Septum. No sections submitted. Gross diagnosis only. B. Turbinate contents. Sections demonstrate respiratory mucosa with underlying glands and mild chronic inflammation. Occasional fragments of calcified bone are seen. No malignancy is identified. Signed SIGNATURE ON FILE Aden White 02/05/20 1529 -------- END OF REPORT Emergent procedure? YESComment: SCHEDULED PROCEDUREPROTHROMBIN [id number] 16:23:00* Test Item Value Reference Range Interpretation Comme nts PT PATIENT (test code = PTP) 11.3 SECONDS 9.3-12.9 N INTERNATIONAL NORMAL RATIO (test code = INR) 1.00 INR Unit 0.8-1.2 N THROMBOPLASTIN TIME [id number] 16:23:00* Test Item Value Reference Range Interpretation Comme nts THROMBOPLASTIN TIME PARTIAL (test code = PTT) 35.6 SECONDS 26-35 H CBC W/AUTO [id number] 16:15:00* Test Item Value Reference Range Interpretation [...]
[2024-07-29] MEDS ORDERED: MORPHINE 4 MG/ML SYR ONE (02:32)
[2024-07-29 02:45] LABS: Absolute Eosinophils 0.1 K/uL (0-0.5); Absolute Lymphocytes (CBC) 4.5 K/uL (0.7-4.9); Absolute Monocytes 0.7 K/uL (0.1-1.3); Absolute Neutrophil 3.1 K/uL (1.8-8.0); Basophils % 0.4 % (0-1.3); Eosinophils % 1.5 % (0-4.4); Hematocrit 42.8 % (39.6-49.0); Hemoglobin 15.1 g/dL (13.6-17.9); Lymphocytes % 52.8 % (15.3-44.8); MCHC 35.2 g/dL (32.0-36.0); MCV 91.1 fL (80-100); MPV 7.5 fL (7.6-11.3); Monocytes % 8.4 % (3.3-12.3); Neutrophils % 36.9 % (41.7-73.7); Platelets 198 thou/uL (152-406)
[2024-07-29 02:56] LABS: Anion Gap 11.3 mEq/L (5.0-15.0); Potassium 3.3 mEq/L (3.5-5.1); Troponin High Sensitivity 10.1 pg/mL (<58.9)
[2024-07-29 04:16] LABS: Blood Morphology Comment NOT SEEN (NOT SEEN); Differential Total Cells Count 100; Eosinophils 2 % (0-3); Lymphocytes 56 % (15-42); Monocytes 5 % (0-10); Platelet Estimate ADEQ; Reactive Lymphocytes 8 %; Segmented Neutrophils 29 % (40-80)
--- NOTE | 2024-07-29 05:46 | RAD REPORT ---
EXAM: CT Angiography Chest With Intravenous Contrast CLINICAL HISTORY: The patient is 58 years old and is Male; CHEST PAIN TECHNIQUE: Axial computed tomographic angiography images of the chest with intravenous contrast. Sagittal and coronal reformatted images were created and reviewed. This CT exam was performed using one or more of the following dose reduction techniques: automated exposure control, adjustmen t of the mA and/or kV according to patient size, and/or use of iterative reconstruction technique. MIP reconstructed images were created and reviewed. COMPARISON: No relevant prior studies available. FINDINGS: Pulmonary arteries: Unremarkable. No pulmonary embolism. Aorta: No acute findings. No thoracic aortic aneurysm. Lungs: Unremarkable. No mass. No consolidation. Pleural space: Unremarkable. No significant effusion. No pneumothorax. Heart: Unremarkable. No cardiomegaly. No significant pericardial effusion. No evidence of R V dysfunction. Bones/joints: No acute fracture. No dislocation. Soft tissues: Unremarkable. Lymph nodes: Unremarkable. No enlarged lymph nodes. IMPRESSION: No acute finding in the chest. No evidence of pulmonary embolism. Electronically signed by: Junito Osorio MD 07/29/2024 04:48 AM [facility] 8 Due to temporary technical issues with the [employer] reporting system, reports are being sierra d by the in-house radiologist without review as a courtesy to ensure prompt reporting the interpreting radiologist is fully responsible for the content of the report. Transcribed Date/Time: 07/29/2024 5:45 AM
--- NOTE | 2024-07-29 06:06 | EDPHYS ---
Physician Documentation [facility] Name: Cam Morgan Age: 58 yrs Sex: Male : 1965 Arrival Date: 07/29/2024 Time: 02:04 Bed 26 Private MD: ED Physician Anirudh Medina HPI: 07/29 03:34 This 58 yrs old Male presents to ER via Ambulatory with complaints of Chest ms3 Pain. 03:34 58 year old male presents to the Emergency Department with complaints of a right-sided ms3 chest pain that radiates to the right side of the back. The patient reports that the pain is significantly worse than when they sought care on Monday. The pain is rated as a 9 out of 10. The patient has taken aspirin, specifically 160 milligrams about half an hour ago and another 160 milligrams approximately 5 hours prior, totaling 320 milligrams. No nausea or vomiting is reported. The patient has their gallbladder intact and reports that previous tests taken on Monday were clear. . Historical: - Allergies: 02:33 No Known Allergies; lg3 - Home Meds: 02:33 aspirin 81 mg Oral capsule [Active]; lg3 - PMHx: 02:33 Myocardial infarction; lg3 - PSHx: 02:33 Nasal; cardiac stent (Nasal); lg3 - Immunization history:: Adult Immunizations up to date. - Infectious Disease History:: Denies. - Social history:: Smoking status: Patient denies any tobacco usage or history of. Patient/guardian denies using alcohol, street drugs. ROS: 03:34 Constitutional: Negative for fever, and chills. ms3 03:34 Respiratory: Negative for shortness of breath, cough, wheezing, and pleuritic chest pain, Abdomen/GI: Negative for abdominal pain, nausea, vomiting, diarrhea, and constipation, Skin: Negative for injury, rash, and discoloration, 03:34 Cardiovascular: Positive for chest pain, Exam: 03:34 Constitutional: This is a well developed, well nourished patient who is awake, alert, ms3 and in no acute distress. Cardiovascular: Regular rate and rhythm with a normal S1 and S2. No gallops, murmurs, or rubs. Normal PMI, no JVD. No pulse deficits. Respiratory: Lungs have equal breath sounds bilaterally, clear to auscultation and percussion. No rales, rhonchi or wheezes noted. No increased work of breathing, no retractions or nasal flaring. Abdomen/GI: Soft, non-tender, with normal bowel sounds. No distension or tympany. No guarding or rebound. No evidence of tenderness throughout. Skin: Warm, dry with normal turgor. Normal color with no rashes, no lesions, and no evidence of cellulitis. 03:34 ECG was reviewed by the Attending Physician. Vital Signs: 02:31 BP 178 / 92; Pulse 59; Resp 16 S; Temp 97.8(O); Pulse Ox 100% on R/A; Weight 103.42 kg lg3 (R); Height 6 ft. 1 in. (R); Pain 10/10; 05:50 BP 135 / 82; Pulse 62; Resp 18 S; Pulse Ox 96% on R/A; br2 02:31 Body Mass Index 30.08 (103.42 kg, 185.42 cm) lg3 02:31 Pain Scale: Adult lg3 MDM: 02:35 Medical Screening Exam initiated ms3 07:49 Differential diagnosis: abnormal EKG, acute myocardial infarction, coronary artery ms3 disease chest wall pain. HEART Score: History: Slightly Suspicious (0), ECG: Normal (0), Age: > 45 and < 65 years (1), Risk Factors: 1 or 2 risk factors (1), Troponin: < or = 1 x Normal Limit (0), Total Score = 2. Data reviewed: vital signs, nurses notes, lab test result(s), EKG, radiologic studies, and as a result, I will admit patient. Consideration of Admission/Observation Patient was admitted/placed on observation. Management of patient was discussed with the following: Hospitalist: Dr Calvert. Mechanical Maintenance Instructor: Dr Murguia- Recommends observation. I considered the following discharge prescriptions or medication management in the emergency department Medications were administered in the Emergency Department. See MAR. Independent interpretation of the following test(s) in the Emergency Department EKG: See my EKG interpretation above. Historians other than the Patient: Spouse/Significant Other: Patient's . Counseling: I had a detailed discussion with the patient and/or guardian regarding the historical points, exam findings, and any diagnostic results supporting the discharge/admit diagnosis, lab results, radiology results, the need for further work-up and treatment in the hospital. ED course: Discussed Dr. Bender's recommendations for observation with patient. Patient understands agrees with plan. All questions were answered. Patient remains in stable condition in the emergency department.. 07/29 02:07 Order name: Basic Metabolic Panel; Complete Time: 04:38 ms3 07/29 02:07 Order name: CBC with Diff; Complete Time: 04:38 ms3 07/29 02:07 Order name: Troponin HS; Complete Time: 04:38 ms3 07/29 02:55 Order name: Manual Differential; Complete Time: 04:38 EDMS 07/29 06:35 Order name: Flu snw 07/29 06:35 Order name: SARS RAPID snw 07/29 06:35 Order name: RSV w 07/29 07:52 Order name: SARS-COV-2 Antigen Rapid; Complete Time: 07:56 EDMS 07/29 07:52 Order name: Respiratory Syncytial Virus Ag; Complete Time: 07:56 EDMS 07/29 07:52 Order name: Influenza Screen (A ; Complete Time: 07:56 EDMS 07/29 08:24 Order name: Add On-Lab ss 07/29 08:50 Order name: Lipid Profile EDDC 07/29 08:50 Order name: Lipase EDDC 07/29 10:12 Order name: Troponin High Sensitivity EDDC 07/29 02:07 Order name: XRAY Chest (1 view); Complete Time: 07:56 ms3 07/29 02:19 Order name: CT Chest For PE Angio; Complete Time: 07:56 ms3 07/29 09:34 Order name: US EDDC 07/29 12:12 Order name: NM EDDC 07/29 02:07 Order name: Cardiac monitoring; Complete Time: 02:27 ms3 07/29 02:07 Order name: EKG - Nurse/Tech; Complete Time: 02:27 ms3 07/29 02:07 Order name: IV Saline Lock; Complete Time: 02:27 ms3 07/29 02:07 Order name: Labs collected and sent; Complete Time: 02:27 ms3 07/29 02:07 Order name: O2 Per Protocol; Complete Time: 02:27 ms3 07/29 02:07 Order name: O2 Sat Monitoring; Complete Time: 02:27 ms3 EC:34 Rate is 69 beats/min. Rhythm is regular. QRS [place] is Normal. [place] interval is normal. QRS ms3 interval is normal. Clinical impression: Normal ECG. Interpreted by me. Reviewed by me. Administered Medications: 02:37 Not Given (Physician Discretion): aspirinchewable tablet 324 mg PO once; 81 mg tablets lg3 x 4 02:37 Drug: morphine IVP or IV 4 mg IVP once over 4 mins Route: IVP; Infused Over: 4 mins; lg3 Site: right antecubital; 03:15 Follow up: Response: No adverse reaction; Pain is decreased br2 Disposition Summary: 07/29/24 06:05 Hospitalization Ordered Notes: Hospitalization Status: Observation ms3 Condition: Stable ms3 Problem: new ms3 Symptoms: are unchanged ms3 Bed/Room Type: Standard ms3 Location: [facility] ER HOLD(07/29/24 06:06) rv1 Room Assignment: ERHOLD-(07/29/24 06:06) rv1 Provider: Alexia Calvert(07/29/24 06:22) ms3 Diagnosis - Chest pain, unspecified ms3 Forms: - Medication Reconciliation Form ms3 - SBAR form ms3 - Leadership Thank You Letter ms3 Signatures: Dispatcher [employer] EDMS Ruby Castle, LAY OUT DRAFTER-C LAY OUT DRAFTER-Csnw Natalie Meredith, RN RN ss Nikki Chavarria RN RN lg3 Anirudh Medina DO DO ms3 Rajani Woodward rv1 Sierra Bray RN br2 Corrections: (The following items were deleted from the chart) 02:20 02:20 Chest For PE Angio+CT.RAD.BRZ ordered. EDMS EDMS 06:06 06:05 Telemetry/MedSurg (observation) ms3 rv1 06:06 06:05 ms3 rv1 06:22 06:05 Melodie Singletary ms3 ms3
--- NOTE | 2024-07-29 06:06 | ER ---
Nurse's Notes [facility] Name: Cam Morgan Age: 58 yrs Sex: Male : 1965 Arrival Date: 07/29/2024 Time: 02:04 Bed 26 Private MD: Diagnosis: Chest pain, unspecified Presentation: 07/29 02:31 Chief complaint: Patient states: right sided chest pain radiating to right back X1 HR. 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 Coronavirus screen: Client denies travel out of the [place] in the last 14 days. At this time, the client does not indicate any symptoms associated with coronavirus-19. Ebola Screen: No symptoms or risks identified at this time. Initial Sepsis Screen: Does the patient meet any 2 criteria? No. Patient's initial sepsis screen is negative. Does the patient have a suspected source of infection? No. Patient's initial sepsis screen is negative. Risk Assessment: Do you want to hurt yourself or someone else? Patient reports no desire to harm self or others. Onset of symptoms was July 29, 2024. 02:31 Method Of Arrival: Ambulatory lg3 02:31 Acuity: MAXIME 3 lg3 Triage Assessment: 02:33 General: Appears in no apparent distress. uncomfortable, Behavior is calm, cooperative. lg3 Pain: Complains of pain in diaphragm and right breast Pain radiates to back. EENT: No deficits noted. No signs and/or symptoms were reported regarding the EENT system. Neuro: [place] Agitation-Sedation Scale (RASS): +1 Restless Level of Consciousness is awake, alert, obeys commands, Oriented to person, place, time, situation. Cardiovascular: Reports chest pain, shortness of breath, Heart tones S1 S2 present Capillary refill < 3 seconds Clubbing of nail beds is absent JVD is absent Patient's skin is warm and dry. Rhythm is sinus rhythm. Respiratory: No deficits noted. Airway is patent Respiratory effort is even, unlabored, Respiratory pattern is regular, symmetrical. GI: No deficits noted. Abdomen is round non-distended. : No signs and/or symptoms were reported regarding the genitourinary system. Derm: No deficits noted. No signs and/or symptoms reported regarding the dermatologic system. Skin is intact, is healthy with good turgor, Skin is dry, Skin is normal, Skin temperature is warm. Musculoskeletal: No signs and/or symptoms reported regarding the musculoskeletal system. Circulation, motion, and sensation intact. Range of motion: intact in all extremities. Historical: - Allergies: 02:33 No Known Allergies; lg3 - Home Meds: 02:33 aspirin 81 mg Oral capsule [Active]; lg3 - PMHx: 02:33 Myocardial infarction; lg3 - PSHx: 02:33 Nasal; cardiac stent (Nasal); lg3 - Immunization history:: Adult Immunizations up to date. - Infectious Disease History:: Denies. - Social history:: Smoking status: Patient denies any tobacco usage or history of. Patient/guardian denies using alcohol, street drugs. Screenin:35 [facility] ED Fall Risk Assessment (Adult) History of falling in the last 3 months, lg3 including since admission No falls in past 3 months (0 pts) Confusion or Disorientation No (0 pts) Intoxicated or Sedated No (0 pts) Impaired Gait No (0 pts) Mobility Assist Device Used No (0 pt) Altered Elimination No (0 pt) Score/Fall Risk Level 0 - 2 = Low Risk Oriented to surroundings, Maintained a safe environment, Educated pt \T\ family on fall prevention, incl call for assistance when getting out of bed, Assessed \T\ reinforced patient's understanding of fall precautions. Abuse screen: Denies threats or abuse. Denies injuries from another. Nutritional screening: No deficits noted. Tuberculosis screening: No symptoms or risk factors identified. Assessment: 02:35 General: see triage assessment. Pain: Pain began 1 hour ago. lg3 05:54 Reassessment: Patient and/or family updated on plan of care and expected duration. Pain br2 level reassessed. Patient is alert, oriented x 3, equal unlabored respirations, skin warm/dry/pink. Patient is alert/active/playful, equal unlabored respirations, skin warm/dry/pink. Patient states feeling better. Patient states symptoms have improved. Pain:. Vital Signs: 02:31 BP 178 / 92; Pulse 59; Resp 16 S; Temp 97.8(O); Pulse Ox 100% on R/A; Weight 103.42 kg lg3 (R); Height 6 ft. 1 in. (R); Pain 10/10; 05:50 BP 135 / 82; Pulse 62; Resp 18 S; Pulse Ox 96% on R/A; br2 02:31 Body Mass Index 30.08 (103.42 kg, 185.42 cm) lg3 02:31 Pain Scale: Adult lg3 ED Course: 02:05 Patient arrived in ED. jj6 02:06 Anirudh Medina DO is Attending Physician. ms3 02:27 XRAY Chest (1 view) In Process Unspecified. EDMS 02:27 Troponin HS Sent. vk 02:27 CBC with Diff Sent. vk 02:27 Basic Metabolic Panel Sent. vk 02:27 Inserted saline lock: 20 gauge in right antecubital area, using aseptic technique. vk Blood collected. Flushed with 10 mL NS. 02:27 Initial lab(s) drawn, by me, sent to lab. vk 02:27 EKG done, by ED staff. vk 02:33 Triage completed. lg3 02:33 Arm band placed on right wrist. lg3 02:35 Patient maintains SpO2 saturation greater than 95% on room air. lg3 02:35 Patient has correct armband on for positive identification. Placed in gown. Bed in low lg3 position. Call light in reach. Side rails up X 1. Client placed on continuous cardiac and pulse oximetry monitoring. NIBP monitoring applied. microbiology director on. Door closed. Noise minimized. Warm blanket given. Pillow given. Family accompanied patient. 03:20 CT Chest For PE Angio In Process Unspecified. EDMS 06:05 Melodie Singletary MD is Hospitalizing Provider. ms3 06:12 Sierra Bray, SUSANNA is Primary Nurse. br2 06:22 Alexia Calvert is Hospitalizing Provider. ms3 07:18 No provider procedures requiring assistance completed. Patient admitted, IV remains in jl7 place. intact, No redness/swelling at site. Administered Medications: 02:37 Not Given (Physician Discretion): aspirinchewable tablet 324 mg PO once; 81 mg tablets lg3 x 4 02:37 Drug: morphine IVP or IV 4 mg IVP once over 4 mins Route: IVP; Infused Over: 4 mins; lg3 Site: right antecubital; 03:15 Follow up: Response: No adverse reaction; Pain is decreased br2 Outcome: 06:05 Decision to Hospitalize by Provider. ms3 07:18 Admitted to ER Hold. Please see CloudTags for further documentation. jl7 07:18 Condition: stable 07:18 Instructed on the need for admit, 13:30 Patient left the ED. Signatures: Dispatcher [employer] EDMS Natalie Meredith, RN RN ss Miley Salvador RN RN jl7 Nikki Chavarria RN RN lg3 Anirudh Medina, DO ms3 Vernell Gilj6 Samantha Hodge Belinda RN RN br2 Corrections: (The following items were deleted from the chart) 02:37 02:31 Chief complaint: Patient states: right sided chest pain radiating to right back lg3 X1 HR lg3
--- NOTE | 2024-07-29 06:36 | P.HP ---
Certification for Inpatient Patient admitted to: Observation With expected LOS: <2 Midnights Patient will require the following post-hospital care: None Practitioner: I am a practitioner with admitting privileges, knowledge of patient current condition, hospital course, and medical plan of care. Services: Services provided to patient in accordance with Admission requirements found in Title 42 Section 412.3 of the Code of Federal Regulations Patient History Date of Service: 07/29/24 Reason for admission: chest/abd pain History of Present Illness: Mr. Morgan is a 58-year-old male with a past medical history of a RCA stent post AZ. He presented to the emergency department last week with back pain with radiation around to right anterior chest and abdomen. He was evaluated in the emergency department, admitted overnight, and ruled out for ACS. This morning he returned to the emergency department with 10/10 pain from his back radiating around to right anterior chest and right upper abdomen. He states this pain is similar to his past AZ. Of note, he and his have been taking a colon cleanse (2 tabs nightly) and with both episodes of chest pain it was preceded by those medications. We will admit him for ops and continue serial troponins and additional pancreatitis/cholecystitis workup. Allergies No Known Allergies Allergy (Unverified 07/26/24 10:33) Home medications list reviewed: Yes Home Medications: Aspirin [Aspirin EC] 243 mg PO DAILY #90 tab 07/26/24 - Past Medical/Surgical History Has patient received pneumonia vaccine in the past: No -: AZ -: none Psychosocial/ Personal History: Lives at home with his . Recently doing a "colon cleanse" - Family History Family History: Reviewed- Non-Contributory - Family History Mother -: Heart disease, Hypertension Father -: Heart disease, Hypertension - Social History Smoking Status: Never smoker Alcohol use: No CD- Drugs: No Caffeine use: Yes Place of Residence: Home Review of Systems 10-point ROS is otherwise unremarkable General: Unremarkable Eyes: Unremarkable ENT: Unremarkable Respiratory: Unremarkable Cardiovascular: Chest Pain, As per HPI Gastrointestinal: Nausea Genitourinary: Unremarkable Musculoskeletal: Unremarkable Integumentary: Unremarkable Neurological: Unremarkable Lymphatics: Unremarkable Physical Examination - Physical Exam General: Alert, In no apparent distress, Oriented x3 HEENT: Atraumatic, Normocephalic, PERRLA Neck: Supple Respiratory: Clear to auscultation bilaterally, Normal air movement Cardiovascular: No edema, Normal pulses, Regular rate/rhythm Capillary refill: <2 Seconds Gastrointestinal: No tenderness, Hyperactive Musculoskeletal: No clubbing, No swelling Integumentary: No rashes Neurological: Normal speech, Normal tone, Normal affect Lymphatics: No axilla or inguinal lymphadenopathy External genitalia: Deferred Rectal: Deferred - Studies Laboratory Data (last 24 hrs) 07/29/24 07/29/24 02:29 02:29 WBC 8.50 Hgb 15.1 Hct 42.8 Plt Count 198 Sodium 138 Potassium 3.3 L BUN 19 H Creatinine 1.14 Glucose 137 H Assessment and Plan - Plan Subjective: Patient admitted with chest pain. Pain is 0/10 from 10/10. Pain does radiate to the right back. Patient denies diaphoresis, shortness of breath, diarrhea. Admits to nausea and vomiting Patient's chest pain has improved Plan: 1. Serial troponins and EKG 2. Appreciate consultation from cardiology 3. Echocardiogram done on last admission and stress test with cardiology is already scheduled 4. Antiplatelet therapy, anticoagulation, beta-mick, statin (patient declines), and O2 as needed 5. IV morphine for pain control 6. add lipids to morning labs Biliary colic For bladder ultrasound Add lipase to a.m. labs VTE prophylaxis Discharge Plan: Home - Advance Directives Does patient have a Living Will: No Does patient have a Durable POA for Healthcare: No - Code Status/Comfort Care Code Status Assessed: Yes (Full)
--- NOTE | 2024-07-29 06:40 | RAD REPORT ---
EXAM: XR Chest, 1 View CLINICAL HISTORY: The patient is 58 years old and is Male; CHEST PAIN TECHNIQUE: Frontal view of the chest. COMPARISON: No relevant prior studies available. FINDINGS: Lungs: Unremarkable. No consolidation. Pleural space: Unremarkable. No pneumothorax. Heart: Unremarkable. Mediastinum: Unremarkable. Normal mediastinal contour. Bones/joints: No acute findings. IMPRESSION: No acute findings in the chest. Electronically signed by: Junito Osorio MD 07/29/2024 03:13 AM [facility] 8 Due to temporary technical issues with the PACS/[employer] reporting system, reports are being sierra d by the in-house radiologist without review as a courtesy to ensure prompt reporting the interpreting radiologist is fully responsible for the content of the report. Transcribed Date/Time: 07/29/2024 6:40 AM
[2024-07-29] MEDS ORDERED: FLU (Fluarix Triv) TS24-25(6MOS UP)/PF 45 MCG/0.5 ML Syringe IM ONE (07:45)
[2024-07-29 07:51] LABS: SARS-CoV-2 Antigen CONTROL BLUE LINE VIS/BG OK; SARS-CoV-2 Antigen Rapid Res Negative (Negative)
[2024-07-29] MEDS ORDERED: ACETAMINOPHEN 500 MG TAB PO PRN (08:50)
[2024-07-29] MEDS: SIMETHICONE 125 MG TAB PO SCH (09:00)
[2024-07-29] MEDS: ASPIRIN EC 81 MG TAB PO SCH (09:00)
--- NOTE | 2024-07-29 09:22 | P.SSS ---
Patient History Date of Service: 07/29/24 Reason for admission: chest/abd pain History of Present Illness: Patient is a 58-year-old gentleman with a history of chest pain where he has been treated 2 years ago with a right coronary artery stent. At that time he was taken supplemental testosterone. Patient states he was here a couple of days ago with chest pain. At that time his troponins were completely negative. Echocardiogram was normal. EKG was not showing any abnormality and patient was discharged for stress test that was placed to be done today at Dr. Murguia's office. However, early this morning patient came into the ER with chest pain. His troponins were once again negative. But the ER physician decided to keep him in the hospital for further evaluation. I will go ahead and get a stress test this morning. If this is negative then patient can be discharged and he will need to continue following up with his PCP for further workup for his cardiac issues. I will to send him some sublingual nitro as well to go home with as well as some pain medication. Stress test is pending at this time. I anticipate he should be able to go home if this is negative. If it shows any reversible ischemia then we will proceed with cardiac catheterization per cardiology recommendation. - Past Medical/Surgical History Has patient received pneumonia vaccine in the past: No -: Right coronary artery stenosis -: Hypogonadism with supplemental testosterone use -: none Psychosocial/ Personal History: Lives at home with his . Recently doing a "colon cleanse" - Family History Family History: Reviewed- Non-Contributory - Family History Mother -: Heart disease, Hypertension Father -: Heart disease, Hypertension - Social History Smoking Status: Never smoker Alcohol use: No CD- Drugs: No Caffeine use: Yes Place of Residence: Home <SingletaryMelodie - Last Filed: 07/29/24 09:20> Date of Service: 07/30/24 History of Present Illness: Mr. Morgan had biliary colic symptoms as well. Troponin evaluations negative x 3. Stress test negative. He had a gallbladder ultrasound that showed sludge and multiple small stones. He was notified of results and asked to follow up with a general surgeon. We will also discharge him with dicyclomine for comfort with instructions for a very low fat diet. - Past Medical/Surgical History Diabetic: No <Ruby Castle - Last Filed: 07/30/24 05:45> Allergies No Known Allergies Allergy (Unverified 07/26/24 10:33) Home Medications: Aspirin [Aspirin EC] 243 mg PO DAILY #90 tab 07/26/24 Dicyclomine [Bentyl] 20 mg PO TIDP PRN #30 cap 07/29/24 Review of Systems 10-point ROS is otherwise unremarkable <Melodie Singletary - Last Filed: 07/29/24 09:20> Gastrointestinal: Other (recurrent right back/shoulder and right upper quadrant pain) <CorrineRuby Dane - Last Filed: 07/30/24 05:45> Physical Examination - Vital Signs Temperature: 98 F Blood Pressure: 140/80 Pulse: 80 Respirations: 18 Pulse Ox (%): 95 - Physical Exam General: Alert, In no apparent distress, Oriented x3 HEENT: Atraumatic, PERRLA, Mucous membr. moist/pink, EOMI, Sclerae nonicteric Neck: Supple, 2+ carotid pulse no bruit, No LAD, Without JVD or thyroid abnormality Respiratory: Clear to auscultation bilaterally, Normal air movement Cardiovascular: Regular rate/rhythm, Normal S1 S2, No murmurs Gastrointestinal: Normal bowel sounds, Soft and benign, Non-distended, No tenderness Musculoskeletal: Tenderness Integumentary: No rashes, No breakdown Neurological: Normal gait, Normal speech, Normal strength at 5/5 x4 extr, Normal tone, Sensation intact, Cranial nerves 3-12 intact, Normal affect Lymphatics: No axilla or inguinal lymphadenopathy - Studies Laboratory Data (last 24 hrs) 07/29/24 07/29/24 07/29/24 02:29 02:29 02:29 WBC 8.50 Hgb 15.1 Hct 42.8 Plt Count 198 Sodium 138 Potassium 3.3 L BUN 19 H Creatinine 1.14 Glucose 137 H Triglycerides 128 Cholesterol 194 HDL Cholesterol 47 Cholesterol/HDL Ratio 4.13 Lipase 26 <Melodie Singletary - Last Filed: 07/29/24 09:20> - Studies Laboratory Data (last 24 hrs) 07/29/24 07/29/24 07/29/24 02:29 02:29 02:29 WBC 8.50 Hgb 15.1 Hct 42.8 Plt Count 198 Sodium 138 Potassium 3.3 L BUN 19 H Creatinine 1.14 Glucose 137 H Triglycerides 128 Cholesterol 194 HDL Cholesterol 47 Cholesterol/HDL Ratio 4.13 Lipase 26 <Ruby Castle - Last Filed: 07/30/24 05:45> - Diagnosis (Problem(s)) (1) History of CAD (coronary artery disease) Status: Acute (2) Chest pain, rule out acute myocardial infarction Status: Acute - Disposition Patient Discharge Instructions: -DC IV and DC home. -Follow-up with PCP in 1 to 2 weeks. -Follow-up with Cardiology in 1 to 2 weeks. -Please call Dr. Singletary at [phone] if any questions regarding hospital stay. -Please call nursing station at [phone] if any nursing or medication questions. -Return to the emergency room if symptoms worsen Diet: AHA Activity: Fall precautions Critical Care: No Time Spent Managing Pts Care (In Minutes): 45 <Melodie Singletary - Last Filed: 07/29/24 09:20> - Disposition Patient Discharge Instructions: -Follow up with general surgery in 1-2 weeks Diet: low fat <Ruby Castle - Last Filed: 07/30/24 05:45> - Disposition Disposition: ROUTINE DISCHARGE Condition: GOOD
--- NOTE | 2024-07-29 09:34 | RAD REPORT ---
EXAM: Right upper quadrant ultrasound. CLINICAL HISTORY: chest/abd pain COMPARISON: None. FINDINGS: Gallbladder: Sludge and numerous small stones. Trace pericholecystic fluid likely present. Bile ducts: No intrahepatic or extrahepatic biliary dilatation. Common bile duct measures 2 mm. Limited imaging of the liver shows no concerning finding. IMPRESSION: Extensive gallbladder sludge and stones. Trace pericholecystic fluid suspected.
[2024-07-29] MEDS ORDERED: REGADENOSON 0.4 MG/5 ML SYR IV ONE (11:00)
[2024-07-29 12:09] VITALS: BP 126/77; TEMP 97.8
--- NOTE | 2024-07-29 12:11 | RAD REPORT ---
EXAM: Nuclear medicine cardiac perfusion examination with ejection fraction HISTORY: Chest pain Chest Pain TECHNIQUE: Rest images: mCi technetium 99m sestamibi Stress images: mCi of technetium 99m sestamibi COMPARISON: None. FINDINGS: Tomographic images: No fixed or reversible perfusion defects. No finding to suspect hibernating myocardium. Ejection fraction of 64%. EDV: 99 mL ESV: 36 mL LHR: 0.32 TID: 0.99 IMPRESSION: No evidence of stress induced ischemia.
--- NOTE | 2024-07-29 14:08 | TREADPHA ---
DX: CHEST PAIN Date of Study: 07/29/24 Ht: 6' 1 " Wt: 228 lb 0 oz Consulting Physician: OPAL MEDICATIONS: HISTORY: PHYSICIAL EXAMINATION: RESTING B.P.: 132/71 RESTING H.R.: 58 RESTING EKG: SINUS RHYTHM PROTOCOL: LEXISCAN EXERCISE TIME: 3:30 B.P. AT PEAK STRESS: 111/65 IMPRESSION: PREMATURE VENTRICULAR COMPLEXES THROUGHOUT PROCEDURE. LEXISCAN STRESS TEST PROCEDURE PERFORMED ORDERED. CARDIOLITE INJECTED PER PROTOCOL (SEE NUCLEAR MEDICINE REPORT). NO COMPLAINTS OF SHORTNESS OF BREATH, CHEST PAIN. NO SUPRA VENTRICULAR TACHYCARDIA OR VENTRICULAR TACHYCARDIA NOTED.
[2024-07-29 15:32] VITALS: O2SAT 96
--- NOTE | 2024-07-31 12:37 | EKG ---
Test Date: 2024-07-29 Test Time: 02:15:20 Camp Boss: RV MEASUREMENT RESULTS: Intervals: Rate: 69 UT: 172 QRSD: 84 QT: 374 QTc: 400 [place]: P: 56 UT: 172 QRS: 57 T: 39 INTERPRETIVE STATEMENTS: Normal sinus rhythm Normal ECG Compared to ECG 07/26/2024 04:07:04 T-wave abnormality no longer present Electronically Signed On 07-31-24 12:32:47 SUPERVISOR BUILDING MAINTENANCE by Kevin Kapadia
== END 2024-07-29 13:15 | disposition home or self-care (01) ==
LOC: ER 02:04 → ERHOLD 06:12
PROVIDERS: ADMIT Hospitalist; ATTEND Internal Medicine
DX: R07.9 Chest pain, unspecified (principal); I25.10 Atherosclerotic heart disease of native coronary artery without angina pectoris; I25.2 Old myocardial infarction; Z95.5 Presence of coronary angioplasty implant and graft; Z79.82 Long term (current) use of aspirin; Z11.52 Encounter for screening for COVID-19
CPT/HCPCS: 36415; 71045; 71275; 76705; 78452; 80048; 80061; 83690; 84484; 85025; 87804; 87807; 87811; 93005; 93017; 96374; 99285; A9500; G0378; J2785; Q9967